=== PATIENT | female | born 2005 | race Caucasian/White ===

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

== ENCOUNTER 2023-05-27 08:55 | Emergency (ER) | payer MEDICAID ==
[~2023-05-27] VITALS: Ht 162.6 cm; Wt 65.0 kg
[~2023-05-27 08:55] MED LIST changes: +FAMO-135 MT
[2023-05-27 08:57] VITALS: O2SAT 100
[2023-05-27 09:43] LABS: BASOPHILS % 0.5 % (0.0-2.0); HEMATOCRIT. 40.5 % (36.0-48.0); HEMOGLOBIN. 13.9 g/dL (12.0-16.0); MEAN CORPUSCULAR HEMOGLOBIN 30.1 pg (28.0-32.0); MEAN CORPUSCULAR HGB CONC 34.2 g/dL (31.0-37.0); MEAN PLATELET VOLUME 7.9 fl (7.4-10.4); MONOCYTES % 7.7 % (2.0-8.0); NEUTROPHILS % 51.8 % (40.0-76.0); PLATELET 275 x1000/uL (130-400)
[2023-05-27 10:37] LABS: ALANINE AMINOTRANSFERASE 8 IU/L (10-49); ALBUMIN 4.4 g/dL (3.2-4.8); ASPARTATE AMINOTRANSFERASE 18 IU/L (<34); BILIRUBIN TOTAL 0.4 mg/dL (0.1-1.0); CALCIUM 8.8 mg/dL (8.7-10.4); CARBON DIOXIDE 24 mEq/L (21-32); CHLORIDE 107 mEq/L (98-107); CREATININE 0.8 mg/dL (0.6-1.0); GLUCOSE 93 mg/dL (70-105); POTASSIUM 3.8 mEq/L (3.5-5.1); PROTEIN TOTAL 7.1 g/dL (6.0-8.3); SODIUM 138 mEq/L (136-145); UREA NITROGEN BLOOD 10 mg/dL (9-23)
[2023-05-27 11:06] LABS: CLARITY URINE CLEAR (CLEAR); COLOR URINE YELLOW (YELLOW); GLUCOSE URINE NEGATIVE (NEGATIVE); KETONES URINE NEGATIVE (NEGATIVE); LEUKOCYTE ESTERASE URINE TRACE (NEGATIVE); NITRITE URINE NEGATIVE (NEGATIVE); OCCULT BLOOD URINE 3+ (NEGATIVE); PH URINE 8.5 (4.5-8.0); PROTEIN URINE NEGATIVE (NEGATIVE); SPECIFIC GRAVITY URINE 1.016 (1.005-1.030); UROBILINOGEN URINE 0.2 E.U./dL (0.2-1.0)
[2023-05-27 11:21] LABS: SQUAMOUS EPITHELIAL CELL URINE 2+ /lpf (RARE/1+)
[2023-05-27 11:22] LABS: BACTERIA URINE 3+; RBC URINE 0-2 /hpf (0-2); TRIPLE PHOSPHATE CRYSTAL URINE 2+ /lpf; WBC URINE 0-2 /hpf (0-2)
[2023-05-27] MEDS: ONDANSETRON HCL 4MG TABLET PO ONE (12:15)
[2023-05-27] MEDS: ACETAMINOPHEN 325MG TABLET PO ONE (12:15)
[2023-05-27] MEDS ORDERED: ONDA4TAB50 PO (12:17)
[2023-05-27] MEDS ORDERED: TOPUD PO (12:17)
[2023-05-27 14:15] VITALS: BP 115/71; PULSE 81; RESP 19; TEMP 98.1
== END 2023-05-27 14:15 | disposition home or self-care (01) ==
LOC: ER 09:12
DX: R10.9 Unspecified abdominal pain (principal); Z88.0 Allergy status to penicillin; Z79.899 Other long term (current) drug therapy
CPT/HCPCS: 80053; 81003; 81025; 83690; 85025; 36415; 99283; Q0162; Z7610 ×2

== ENCOUNTER 2024-12-29 09:48 | Emergency (ER) | payer MEDICAID ==
[~2024-12-29] VITALS: Ht 162.6 cm; Wt 73.0 kg
[~2024-12-29 09:48] MED LIST changes: +ONDA4TAB50 PO; +TOPUD PO
[2024-12-29 10:07] VITALS: O2SAT 100
[2024-12-29] MEDS ORDERED: DIPH25CA83 MT (10:41)
[2024-12-29] MEDS ORDERED: FLUT9.9S BOTHNSTRLS (10:41)
[2024-12-29 11:08] VITALS: BP 120/75; PULSE 74; RESP 15; TEMP 36.7; O2SAT 100
== END 2024-12-29 11:09 | disposition home or self-care (01) ==
LOC: ER 09:48
DX: R09.81 Nasal congestion (principal); Z88.0 Allergy status to penicillin; Z79.899 Other long term (current) drug therapy
CPT/HCPCS: 99282